=== PATIENT | female | born 1970 | race Hispanic/Latino ===

== ENCOUNTER 2024-04-08 22:25 | Emergency (ER) | payer BC ==
[~2024-04-08] VITALS: Ht 160 cm; Wt 46.7 kg
[2024-04-08 22:45] VITALS: PULSE 84; RESP 18; TEMP 98.3
[2024-04-09 00:06] VITALS: BP 133/72; PULSE 84; RESP 18; TEMP 98.3; O2SAT 98
== END 2024-04-09 00:06 | disposition home or self-care (01) ==
LOC: FSED 22:59
DX: R51.9 Headache, unspecified (principal); V43.52XA Car driver injured in collision with other type car in traffic accident, initial encounter; Y92.488 Other paved roadways as the place of occurrence of the external cause
CPT/HCPCS: 71046; 99282